=== PATIENT | male | born 1995 | race African-American/Black ===

== ENCOUNTER 2017-04-09 18:40 | Emergency (ER) | payer OTHER ==
[~2017-04-09] VITALS: Ht 185.4 cm; Wt 118.0 kg
[~2017-04-09 18:40] MED LIST: AMOX500T PO; CLON0.2T PO; IBUP1TAB7 PO; ZOFR4TAB3 SL
[2017-04-09 18:41] VITALS: BP 182/110; PULSE 82; RESP 18; TEMP 98.6; O2SAT 98
[2017-04-09] MEDS ORDERED: IBUP1TAB7 PO (21:13)
[2017-04-09] MEDS ORDERED: ROBA500T PO (21:13)
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
== END 2017-04-09 21:40 | disposition home or self-care (01) ==
LOC: NEPK 18:40
DX: S16.1XXA Strain of muscle, fascia and tendon at neck level, initial encounter (principal); V89.2XXA Person injured in unspecified motor-vehicle accident, traffic, initial encounter
CPT/HCPCS: 99283